=== PATIENT | female | born 1955 | race Caucasian/White ===

== ENCOUNTER 2022-09-21 10:17 | Outpatient (REF) | payer MEDICARE, BC, SELFPAY ==
--- NOTE | ~2022-09-21 | XR_ITS ---
EXAMINATION: XR CHEST CLINICAL INFORMATION: Chronic cough, bronchitis COMPARISON: None TECHNIQUE: 2 views of the chest were obtained. FINDINGS: There is mild hyperinflation. The vascularity is normal. The lungs are clear and there is no airspace consolidation or groundglass opacity, pleural reaction, or effusion. The costophrenic sulci are clear. The heart is normal in size. The hilar and mediastinal contours are normal. There are mild degenerative changes thoracic spine. XR/XR chest 2V IMPRESSION: Mild hyperinflation. Lungs clear.
== END 2022-09-21 10:18 | disposition home or self-care (01) ==
LOC: HO.XRAY 10:17
PROVIDERS: Visit Provider Otolaryngology
DX: R05.9 Cough, unspecified (principal); J40 Bronchitis, not specified as acute or chronic
CPT/HCPCS: 71046